=== PATIENT | female | born 2005 | race Caucasian/White ===

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

== ENCOUNTER 2025-03-09 04:18 | Emergency (ER) | payer OTHER, SELFPAY ==
--- NOTE | 2025-03-09 04:20 | ED.GENADULT ---
HPI - General Adult General Time Seen by Provider: 04:20 Date Seen: 03/09/25 Chief complaint: Extremity Pain/Injury, Upper Stated complaint: Left wrist injury Time Seen by Provider: 03/09/25 04:20 Source: patient, RN notes reviewed and old records reviewed Mode of arrival: ambulatory Limitations: no limitations History of Present Illness HPI narrative: 20-year-old female who presents today with injury of the left wrist. Patient fell backward yesterday onto her hands, gradual onset left wrist pain. Patient did not take any Tylenol or ibuprofen at home. No other injuries. Related Data Home Medications ?Medication ?Instructions ?Recorded ?Confirmed No Known Home Medications 03/09/25 03/09/25 Allergies Allergy/AdvReac Type Severity Reaction Status Date / Time No Known Drug Allergies Allergy Verified 03/09/25 04:25 [facility] Social History Smoking Status: Never smoker Do you use any of these nicotine containing products: None How often do you have a drink containing alcohol: never How often do you have six or more drinks on one occasion: Never AUDIT-C Alcohol total score: 0 Non-prescribed substance use: denies use Exam Narrative: Exam Narrative: General: well nourished , NAD Head: Atraumatic and normocephalic ENT: External ears and external nose are normal Eyes: Conjunctiva clear, pupils are equal reactive, external ocular motions are intact Neck: Full spontaneous range of motion of the neck Lungs: No respiratory distress Musculoskeletal: Mild swelling on the dorsum left wrist, pain with passive movement Neurologic: No gross focal neurologic deficits Skin: No rashes Psych: Mood and affect are appropriate Const: Vital Signs, click to edit/add: Vital Signs - 24 hr 03/09/25 04:24 03/09/25 04:34 Temperature 98.2 F 98.2 F Pulse Rate [Pulse Oximeter] 121 H Respiratory Rate 20 Blood Pressure [Ri ght Upper Arm] 144/82 H Pulse Oximetry 99 Oxygen Delivery Me thod Room Air Course Course ED Course: Patient seen examined, presents today with left wrist pain. She had a fall yesterday, gradual onset of pain since then. On exam there is some swelling around the left wrist, patient is tearful quite anxious appearing. X-rays are ordered along with ibuprofen as patient has not taken anything for the pain. Reevaluation(s) Time of Reevaluation #1: 04:40 Reevaluation #1: X-ray of the left wrist independently interpreted by me negative for acute findings. Patient will be given a wrist splint and stable for discharge. Vital Signs Vital signs: Initial Vital Signs Temperature 98.2 F 03/09/25 04:24 Temperature Source Temporal Artery Scan 03/09/25 04:24 Pulse Rate 121 H 03/09/25 04:24 Respiratory Rate 20 03/09/25 04:24 Blood Pressure 144/82 H 03/09/25 04:24 Blood Pressure Mean 102 03/09/25 04:24 Blood Pressure Position Sitting 03/09/25 04:24 Pulse Oximetry 99 03/09/25 04:24 Oxygen Delivery Method Room Air 03/09/25 04:24 Vital Signs Temperature 98.2 F 03/09/25 04:24 Pulse Rate 121 H 03/09/25 04:24 Respiratory Rate 20 03/09/25 04:24 Blood Pressure 144/82 H 03/09/25 04:24 Pulse Oximetry 99 03/09/25 04:24 Oxygen Delivery Method Room Air 03/09/25 04:24 Temperature 98.2 F 03/09/25 04:34 Pulse Rate 121 H 03/09/25 04:24 Respiratory Rate 20 03/09/25 04:24 Blood Pressure 144/82 H 03/09/25 04:24 Pulse Oximetry 99 03/09/25 04:24 Oxygen Delivery Method Room Air 03/09/25 04:24 Medications Administered Medications: Discontinued Medications Generic Name Dose Route Start Last Admin Trade Name Henryq PRN Reason Stop Dose Admin Ibuprofen 600 mg 03/09/25 04:29 03/09/25 04:34 Ibuprofen 600 Mg Tablet PO 03/09/25 04:30 600 mg ONCE ONE Administration Discharge Plan Discharge Clinical Impression: Sprain and strain of wrist Patient Disposition: Home, Self-Care Condition: Stable Instructions: Wrist Sprain (ED) Additional Instructions: Wear splint for comfort Tylenol and ibuprofen as needed for pain Activity Level: Wear Brace Discharge Diet: Regular Prescriptions: No Action No Known Home Medications Follow Up/Referrals: Provider,Not a Local [Primary Care Provider, Family Practice] Stand Alone Forms: [facility] Inst[facility]
--- OUTSIDE RECORDS SUMMARY | 2025-03-09 04:20 | XMS_ITS | Encounter Summary ---
Author Organization [facility] Address [address] [place] [address] Phone Care Team Providers Care Manager Location Name Role Phone Unavailable Primary Care Provider Unavailabl e Encounter Details Date Type Department Care Team (Late st Contact Info) Description 07/05/2021 Orders Only [facility] [place] [address] [place] [address] Heather Peace CRNP [address] [place] [address] SARS-associated coronavirus exposure Social History Tobacco Use Types Packs/Day Years Used Date Smoking Tobacco: Never Assessed Comments Unknown Sex and Gender Information Value Date Recorded Sex Assigned at Not on file Legal Sex Female 10:09 PM EDT Gender Identity Not on file Sexual Orientation Not on file documented as of this encounter Plan of Treatment Not on file documented as of this encounter Procedures Procedure Name Priority Date/Time Associated Diagnosis Comments NOVEL CORONAVIRUS (COVID-19), PCR [facility] Routine 07/05/2021 8:19 AM EDT SARS-associated coronavirus exposure documented in this encounter Results * Novel Coronavirus (COVID-19), PCR [facility] - Collection at [facility] (07/05/2021 8:19 AM EDT) SARS-CoV-2 Negative Negative [facility] DX 07/06/2021 11:29 AM EDT [facility] Nares Nasal structure / Unknown 07/05/2021 8:19 AM EDT 07/05/2021 8:19 AM EDT Narrative [facility] - 07/06/2021 11:29 AM EDT FOR PEDIATRIC PATIENTS - copy/paste COVID Guidelines URL to browser: [email or web address] The specimen collection materials, transport medium, and/or testing methodology utilized in the production of these test results have been proven to be reliable in a limited validation with an abbreviated program under the Emergency Utilization Authorization provided by the FDA. Testing reported as Presumptive positive will be confirmed with secondary testing to ensure result accuracy. Clinical caution and judgement should be used with the interpretation of these results with consideration of the clinical impression and other laboratory testing. Testing reported as Positive or Negative has been proven to be accurate according to standard laboratory validation requirements. All testing is performed with control materials showing appropriate reactivity at standard intervals. Yang Cochran DO MICROBIOLOGY - GENERAL [place] [address], documented in this encounter Visit Diagnoses Diagnosis SARS-associated coronavirus exposure Exposure to SARS-associated coronavirus documented in this encounter Additional Health Concerns Infection Onset Date Last Indicated Resolved Time COVID-19 Rule-Out 07/05/2021 07/05/2021 07/06/2021 11:29 AM EDT documented as of this encounter
--- OUTSIDE RECORDS SUMMARY | 2025-03-09 04:20 | XMS_ITS | Clinical Summary ---
Author Organization [facility] Address [address] [place] [address] Phone Care Team Providers Care Combination Presser Name Role Phone Unavailable Primary Care Provider Unavailabl e Allergies No known active allergies Medications amoxicillin (AMOXIL) 400 MG/5ML suspension 09/23/2021 A ctive Active Problems No known active problems Social History Tobacco Use Types Packs/Day Years Used Date Smoking Tobacco: Never Comments Unknown Sex and Gender Information Value Date Recorded Sex Assigned at Not on file Legal Sex Female 10:09 PM EDT Gender Identity Not on file Sexual Orientation Not on file Last Filed Vital Signs Vital Sign Reading Time Taken Comments Blood Pressure 113/55 09/26/2021 3:25 PM EST Pulse 81 09/26/2021 3:25 PM EST Temperature 36.8 C (98.2 F) 09/26/2021 3:25 PM EST Respiratory Rate 18 09/26/2021 3:25 PM EST Oxygen Saturation 99% 09/26/2021 3:25 PM EST Inhaled Oxygen Concentration - - Weight 53.1 kg (117 lb) 09/29/2021 8:11 AM EST Height 160 cm (5' 3) 09/29/2021 8:11 AM EST Body Mass Index 20.73 09/29/2021 8:11 AM EST Plan of Treatment Not on file Insurance [employer] Member Subscriber Plan / Payer (Ef fective 2020-Present) Name:Precious Blancas Relation to Subscriber:Child Name:ESTELA GREGORY Date of :2005 (Home) Address: [address] [place] [address] Payer ID:[id number] (NAIC) Type:[employer] Address: [address] [place] [phone] [employer] Member Subscriber Plan / Payer ( fective 2020-Present) Name:Precious Blancas Relation to Subscriber:Child Name:LEOBLAIRESTELA PAIGE Date of :2005 (Home) [address] [place] [address] Payer ID:[id number] ([facility]) Type:[employer] Address: [address] [place] [phone] [employer] CIGNA Member Subscriber Plan / Payer ( fective 2020-Present) Name:Precious Blancas Relation to Subscriber:Child Name:ESTELA GREGORY Date of :2005 (Home) Address: [address] [place] [address] Payer ID:[id number] (NAIC) Type:[employer] Address: [facility] [id number] [place] [phone] [employer] Member Subscriber Plan / Payer ( fective 2020-Present) Name:Precious Blancas Relation to Subscriber:Child Name:ESTELA GREGORY Date of :2005 (Home) Address: [address] [place] [address] Payer ID:[id number] (NAIC) Type:[employer] Address: [facility] [id number] [place] [phone]
[2025-03-09 04:24] VITALS: BP 144/82; PULSE 121; RESP 20; TEMP 36.8; O2SAT 99; BMI 22.1
--- NOTE | 2025-03-09 04:29 | CRLHL7_ITS ---
For Patients: As a result of the Century Cures Act, medical imaging exams and procedure reports are released immediately into your electronic medical record. You may view this report before your referring provider. If you have questions, please contact your health care provider. Indication: Trauma Technique: A total of three views of the left wrist were acquired. Comparison: None Findings: Bones: No visible acute fracture or bone lesion. A well corticated ossific fragment is seen adjacent to the scaphoid which may be related to an old injury. Joint spaces: Unremarkable. Soft tissues: Unremarkable. Impression: No acute fracture, dislocation or destructive process.A well corticated ossific fragment is seen adjacent to the scaphoid which may be related to an old injury. Dictated by Leonard Strauss MD @ 03/09/2025 4:44:56 AM (Electronically Signed)
[2025-03-09 04:34] VITALS: TEMP 36.8
[2025-03-09] MEDS: IBUPROFEN 600 MG TABLET PO (04:34)
[2025-03-09 04:47] VITALS: BP 135/70; PULSE 100; RESP 20; TEMP 36.8; O2SAT 99
[2025-03-09 04:48] VITALS: BP 135/70; PULSE 100; RESP 20; TEMP 36.8
[2025-03-09] MEDS: KETOROLAC 10 MG TABLET PO (04:57)
== END 2025-03-09 05:16 | disposition home or self-care (01) ==
LOC: ED 04:44
PROVIDERS: Emergency Provider Family Medicine
DX: S63.502A Unspecified sprain of left wrist, initial encounter (principal); W18.30XA Fall on same level, unspecified, initial encounter
CPT/HCPCS: 73110; 99283; A9270